=== PATIENT | male | born 1940 | race Caucasian/White ===

== ENCOUNTER → 2016-12-08 | Outpatient (CLI) | payer MEDICARE ==
[~2016-12-08] MED LIST: ALPR0.5T3 PO; ALPR0.5T99 PO; APIX5TAB PO; ATOR10 PO; AZIT250T74 PO; CARV6.252 PO; CEFU1TAB43 PO; CHOL1CAP6 PO; CORNPOW11 PO; DUONI NEB; ECOT81TA2 PO; FISHCAP PO; FLUO40CA PO; ISOS30 PO; ISOS30TA3 PO; KRIL300C OP; LIPI10TA PO; METHY10 PO; NEBUMIS6 INH; NORV10TA PO; OMPR20CCR PO; PRED5PAK PO; PRIL20CA9 PO; PROZ40CA PO; RITA20TA PO; SPIRCAP INH; SYMB160A INH; SYMB80AE INH; VITA100017 PO; VITA10007 PO; VITA400C28 PO; VITA400C5 PO; VITA500S3 SL; VITA500T49 PO; Z.0.OXYGEN INH
[2016-12-08 14:12] LABS: ALKALINE PHOSPHATASE 137 U/L (45-117); GAMMA GT 28 U/L (15-85)
== END ==
LOC: PLAB 10:32
DX: R74.8 Abnormal levels of other serum enzymes (principal)
CPT/HCPCS: 36415; 82977; 84075

== ENCOUNTER → 2016-12-23 | Outpatient (CLI) | payer MEDICARE ==
[~2016-12-23] MED LIST changes: +CHLORHEXIDINE GLUCONATE 2 % 1 PACK (2 CLOTHS) TOPICAL PRN; +INSULIN HUMAN REGULAR 1,000 UNITS/10 ML VIAL SQ PRN; +KETAMINE HCL 500 MG/5 ML VIAL ONE; +LACTATED RINGER'S 1000 ML IV PRN; +METOPROLOL TARTRATE 25 MG TAB PO PRN; +MIDAZOLAM HCL 2 MG/2 ML VIAL ONE; +PHENYLEPH/NS 1000 MCG/10 ML SYR IV ONE; +POVIDONE IODINE 5% (ANTISEPSIS KIT) 4 APPLICATIONS EACH NARE PRN; +PROPOFOL 200 MG/20 ML AMP IV ONE; +SODIUM CHLORID 0.9% 500 ML IV PRN
[2016-12-23 10:30] VITALS: BP 155/77; PULSE 62; RESP 16; TEMP 98.3; O2SAT 99
[2016-12-23 13:30] VITALS: BP 172/80; PULSE 65; RESP 16; O2SAT 99
--- NOTE | 2016-12-23 19:07 | EKG ---
Date Performed: 12/23/2016 Time Performed: 10:21:04 PTAGE: 76 years EKG: SINUS BRADYCARDIA BORDERLINE ECG Since PREVIOUS TRACING , no significant change noted PREVIOUS TRACIN04/22/2015 09.17 DOCTOR: Radha Steele Interpretating Date/Time 12/23/2016 19:05:10
== END ==
LOC: HEND 09:48
DX: Z12.11 Encounter for screening for malignant neoplasm of colon (principal); Z86.010 Personal history of colon polyps; D12.3 Benign neoplasm of transverse colon; K57.30 Diverticulosis of large intestine without perforation or abscess without bleeding; K22.70 Barrett's esophagus without dysplasia; R04.2 Hemoptysis; Z01.810 Encounter for preprocedural cardiovascular examination
CPT/HCPCS: 00810; 43239; 45385; 88305; 93005; J2250; J2370; J7120

== ENCOUNTER → 2017-11-15 | Outpatient (CLI) | payer MEDICARE ==
[~2017-11-15] MED LIST changes: -ALPR0.5T99 PO; -ATOR10 PO; -AZIT250T74 PO; -CEFU1TAB43 PO; -CHLORHEXIDINE GLUCONATE 2 % 1 PACK (2 CLOTHS) TOPICAL PRN; -CHOL1CAP6 PO; -DUONI NEB; -ECOT81TA2 PO; -FISHCAP PO; -INSULIN HUMAN REGULAR 1,000 UNITS/10 ML VIAL SQ PRN; -ISOS30 PO; -KETAMINE HCL 500 MG/5 ML VIAL ONE; -LACTATED RINGER'S 1000 ML IV PRN; -METHY10 PO; -METOPROLOL TARTRATE 25 MG TAB PO PRN; -MIDAZOLAM HCL 2 MG/2 ML VIAL ONE; -NEBUMIS6 INH; -NORV10TA PO; -OMPR20CCR PO; -PHENYLEPH/NS 1000 MCG/10 ML SYR IV ONE; -POVIDONE IODINE 5% (ANTISEPSIS KIT) 4 APPLICATIONS EACH NARE PRN; -PRED5PAK PO; -PROPOFOL 200 MG/20 ML AMP IV ONE; -PROZ40CA PO; -SODIUM CHLORID 0.9% 500 ML IV PRN; -SYMB80AE INH; -VITA100017 PO; -VITA500S3 SL; +VITA500T35 PO; -VITA500T49 PO; -Z.0.OXYGEN INH
[2017-11-15 14:18] LABS: BILIRUBIN, URINE NEG (NEG); BLOOD, URINE NEG (NEG); GLUCOSE,URINE NEG (NEG); KETONE, URINE NEG (NEG); MUCUS URINE FEW /lpf (OCC); NITRITE,URINE NEG (NEG); PH, URINE 6.5 (5.0-8.5); URINE COLOR YELLOW (YELLW/STRAW); URINE LEUKOCYTE ESTERASE NEG (NEG)
[2017-11-15 14:22] LABS: BASOPHIL # 0.1 TH/MM3 (0-0.2); BASOPHIL % 0.9 % (0.0-2.0); EOSINOPHIL # 0.5 TH/MM3 (0-0.4); EOSINOPHIL % 7.4 % (0.0-4.0); HEMATOCRIT 37.4 % (39.0-51.0); HEMOGLOBIN 12.5 GM/DL (13.0-17.0); LYMPH % 17.9 % (9.0-44.0); LYMPHOCYTE # 1.2 TH/MM3 (1.0-4.8); MEAN CELL VOLUME 95.3 FL (80.0-100.0); MEAN CORPUSCULAR HEMOGLOBIN 31.8 PG (27.0-34.0); MEAN CORPUSCULAR HGB CONC 33.3 % (32.0-36.0); MEAN PLATELET VOLUME 9.6 FL (7.0-11.0); MONO % 12.8 % (0.0-8.0); MONOCYTE # 0.9 TH/MM3 (0-0.9); PLATELET COUNT 226 TH/MM3 (150-450); RED BLOOD COUNT 3.93 MIL/MM3 (4.50-5.90); RED CELL DISTRIBUTION WIDTH 14.2 % (11.6-17.2); WHITE BLOOD COUNT 6.6 TH/MM3 (4.0-11.0)
[2017-11-15 14:26] LABS: CHOLESTEROL 149 MG/DL (120-200); TRIGLYCERIDES 25 MG/DL (42-150)
[2017-11-15 14:30] LABS: ALBUMIN 3.8 GM/DL (3.4-5.0); AST (GOT) 16 U/L (15-37); BICARBONATE 28.3 MEQ/L (21.0-32.0); BLOOD UREA NITROGEN 20 MG/DL (7-18); CALCIUM 9.1 MG/DL (8.5-10.1); CHLORIDE 103 MEQ/L (98-107); CREATININE 1.03 MG/DL (0.60-1.30); GLOMERULAR FILTRATION RATE 70 ML/MIN (>89); GLUCOSE,FASTING 111 MG/DL (74-99); SODIUM (NA) 140 MEQ/L (136-145)
[2017-11-15 14:32] LABS: ALKALINE PHOSPHATASE 130 U/L (45-117); ALT (GPT) 22 U/L (12-78); CHOLESTEROL/ HDL RATIO 1.34 RATIO; HDL CHOLESTEROL 110.4 MG/DL (40.0-60.0); LDL CHOLESTEROL 34 MG/DL (0-99); LDL CHOLESTEROL DIRECT 48 MG/DL (0-99); TOTAL BILIRUBIN ADULT 0.8 MG/DL (0.2-1.0); TOTAL PROTEIN 7.3 GM/DL (6.4-8.2)
[2017-11-15 16:11] LABS: HEMOGLOBIN A1C 5.6 % (4.3-6.0)
== END ==
LOC: PLAB 09:44
PROVIDERS: ATTEND Family Medicine
DX: I10 Essential (primary) hypertension (principal); E78.5 Hyperlipidemia, unspecified; R73.09 Other abnormal glucose
CPT/HCPCS: 36415; 80053; 80061; 81001; 83036; 83721; 85025